=== PATIENT | male | born 1975 | race Two or more races ===

== ENCOUNTER 2020-07-24 13:44 | Outpatient (REF) | payer OTHER, SELFPAY | END 2020-07-24 13:45 | disposition home or self-care (01) | LOC: HO.LAB 13:44 | PROVIDERS: Visit Provider Internal Medicine | DX: Z20.828 Contact with and (suspected) exposure to other viral communicable diseases (principal) | CPT/HCPCS: C9803; U0003 ==

== ENCOUNTER 2022-09-18 10:47 | Outpatient (REF) | payer BC, SELFPAY ==
[2022-09-18 11:20] LABS: MANUAL DIFF FLAG NO
[2022-09-18 11:27] LABS: Basophils Absolute Auto 0.1 X10*3/uL (0.0-0.2); Basophils Percent Auto 0.7 % (0-2); Eosinophils Absolute Auto 0.2 X10*3/uL (0.0-0.4); Eosinophils Percent Auto 2.5 % (0-4); Hematocrit 50.6 % (42.0-52.0); Hemoglobin 16.9 g/dl (14.0-18.0); Imm Gran Abs Auto 0.04 X10*3/uL (0.00-0.03); Imm Gran Pct Auto 0.4 % (0.0-0.4); Lymphocytes Absolute Auto 2.4 X10*3/uL (1.2-4.9); Mean Corpuscular HGB Conc 33.4 g/dl (31.0-36.0); Mean Corpuscular Hemoglobin 30.2 pg (27.0-33.0); Mean Corpuscular Volume 90.5 fL (80.0-98.0); Mean Platelet Volume 10.4 fL (9.4-12.4); Monocytes Absolute Auto 0.9 X10*3/uL (0.1-1.2); Monocytes Percent Auto 9.2 % (2-11); Neutrophils Absolute Auto 5.6 x10*3/uL (2.0-8.3); Neutrophils Percent Auto 61.2 % (45-73); Platelet Count 258 X10*3/uL (160-400); Red Blood Count 5.59 X10*6/uL (4.60-5.80); Red Cell Distribution Width 13.3 % (11.0-16.0); White Blood Count 9.2 X10*3/uL (4.8-10.8)
[2022-09-18 12:19] LABS: Erythrocyte Sedimentation Rate 2 MM/HR (0-15)
[2022-09-18 13:25] LABS: Alanine Aminotransferase 26 U/L (0-40); Albumin Level 4.2 g/dL (3.5-5.0); Alkaline Phosphatase 107 U/L (39-117); Anion Gap 16 (12-20); Aspartate Amino Transferase 23 U/L (5-37); Bilirubin Total 0.5 mg/dL (0.0-1.0); Blood Urea Nitrogen 17 mg/dL (9-16); C Reactive Protein 0.89 mg/dL (< or = 0.50); Calcium 9.9 mg/dL (8.4-10.2); Carbon Dioxide 28 mmol/L (22-29); Chloride 101 mmol/L (96-108); Cholesterol 253 mg/dL; Estimated Glomerular Filt Rate > 60; Glucose Random 65 mg/dL (60-115); Sodium 141 mmol/L (135-145); Total Protein 7.2 g/dL (6.5-8.0)
[2022-09-18 13:32] LABS: Syphilis Screen Nonreactive (Nonreactive)
[2022-09-18 13:33] LABS: Prostate Specific Antigen Scr 0.85 ng/mL (<0.05-4.0)
== END 2022-09-18 10:48 | disposition home or self-care (01) ==
LOC: HO.10HDL 10:47
PROVIDERS: Visit Provider Internal Medicine
DX: Z00.00 Encounter for general adult medical examination without abnormal findings (principal); Z12.5 Encounter for screening for malignant neoplasm of prostate; L50.9 Urticaria, unspecified
CPT/HCPCS: 36415; 80053; 82465; 84153; 85025; 85652; 86140; 86780

== ENCOUNTER 2023-05-23 09:45 | Outpatient (REF) | payer BC, SELFPAY ==
--- NOTE | ~2023-05-23 | XR_ITS ---
EXAMINATION: XR SHOULDER, RIGHT CLINICAL INFORMATION: Right shoulder pain COMPARISON: None available. TECHNIQUE: AP external rotation, Grashey, scapular Y, and axillary views of the right shoulder. FINDINGS: The bones are intact. No fracture. Glenohumeral and acromioclavicular alignment is anatomic with normal glenohumeral joint space. Mild to moderate degenerative change of acromioclavicular joint No abnormal soft tissue calcifications. XR/XR shoulder RT min 2V IMPRESSION: Mild to moderate degenerative change of the acromioclavicular joint.
[2023-05-23 12:17] LABS: Cholesterol 237 mg/dL (<200); HDL Cholesterol 38 mg/dL (>40); LDL Cholesterol Calculated 164 mg/dL (<100); Triglycerides 178 mg/dL (<150)
== END 2023-05-23 09:46 | disposition home or self-care (01) ==
LOC: HO.XRAY 09:45
PROVIDERS: PCP Internal Medicine; Visit Provider Internal Medicine
DX: M25.511 Pain in right shoulder (principal); E78.00 Pure hypercholesterolemia, unspecified
CPT/HCPCS: 36415; 73030; 80061

== ENCOUNTER 2023-09-15 10:51 | Outpatient (REF) | payer BC, SELFPAY ==
[2023-09-15 13:06] LABS: MANUAL DIFF FLAG NO
[2023-09-15 13:09] LABS: Basophils Absolute Auto 0.1 X10*3/uL (0.0-0.2); Basophils Percent Auto 0.8 % (0-2); Eosinophils Absolute Auto 0.1 X10*3/uL (0.0-0.4); Eosinophils Percent Auto 1.2 % (0-4); Hematocrit 47.1 % (42.0-52.0); Hemoglobin 15.8 g/dl (14.0-18.0); Imm Gran Abs Auto 0.01 X10*3/uL (0.00-0.03); Imm Gran Pct Auto 0.1 % (0.0-0.4); Lymphocytes Absolute Auto 2.5 X10*3/uL (1.2-4.9); Lymphocytes Percent Auto 29.2 % (20-40); Mean Corpuscular HGB Conc 33.5 g/dl (31.0-36.0); Mean Corpuscular Hemoglobin 30.4 pg (27.0-33.0); Mean Corpuscular Volume 90.8 fL (80.0-98.0); Mean Platelet Volume 10.8 fL (9.4-12.4); Monocytes Absolute Auto 0.6 X10*3/uL (0.1-1.2); Monocytes Percent Auto 7.2 % (2-11); Neutrophils Absolute Auto 5.2 x10*3/uL (2.0-8.3); Neutrophils Percent Auto 61.5 % (45-73); Platelet Count 231 X10*3/uL (160-400); Red Blood Count 5.19 X10*6/uL (4.60-5.80); Red Cell Distribution Width 13.4 % (11.0-16.0); White Blood Count 8.5 X10*3/uL (4.8-10.8)
[2023-09-15 13:11] LABS: Appearance Urine Clear; Color Urine Yellow; Glucose Urine UA Negative (Negative); Leukocyte Esterase Urine Negative (Negative); Nitrite Urine Negative (Negative); Specific Gravity - Urine 1.015 (1.005-1.025); UMIC TRIGGER UACC YES; Urine Blood Trace (Negative); Urine Ketones Negative (Negative); Urine Protein Negative (Neg-Trace)
[2023-09-15 13:13] LABS: Bacteria Urine None Seen (None Seen); Hyaline Casts Urine 0-2 /LPF (0-2); Squamous Epithelial Cell Urine 0-2 /HPF (0-2); WBC Urine 0-5 /HPF (0-5)
[2023-09-15 13:23] LABS: Alanine Aminotransferase 22 U/L (0-40); Albumin Level 4.1 g/dL (3.5-5.0); Alkaline Phosphatase 91 U/L (39-117); Anion Gap 15 (12-20); Aspartate Amino Transferase 17 U/L (5-37); Bilirubin Total 0.4 mg/dL (0.0-1.0); Blood Urea Nitrogen 16 mg/dL (9-16); Carbon Dioxide 27 mmol/L (22-29); Chloride 103 mmol/L (96-108); Estimated Glomerular Filt Rate > 60; Glucose Random 81 mg/dL (60-115); Potassium 3.9 mmol/L (3.3-5.1); Sodium 141 mmol/L (135-145); Total Protein 7.1 g/dL (6.5-8.0)
[2023-09-15 15:13] LABS: CT PCR NOT DETECTED (Not Detect.); NG PCR NOT DETECTED (Not Detect.)
== END 2023-09-15 10:52 | disposition home or self-care (01) ==
LOC: HO.10HDL 10:51
PROVIDERS: Visit Provider Internal Medicine
DX: R31.9 Hematuria, unspecified (principal); E78.00 Pure hypercholesterolemia, unspecified; Z20.2 Contact with and (suspected) exposure to infections with a predominantly sexual mode of transmission
CPT/HCPCS: 0353U; 80053; 81001; 85025; 87086

== ENCOUNTER 2023-09-26 10:09 | Outpatient (REF) | payer BC, SELFPAY ==
--- NOTE | ~2023-09-26 | US_ITS ---
EXAMINATION: US RETROPERITONEAL COMPLETE (RENAL) CLINICAL INFORMATION: Hematuria. COMPARISON: None available. TECHNIQUE: Real-time imaging of the kidneys and bladder. FINDINGS: RIGHT KIDNEY: 10.7 x 5.0 x 5.4 cm (SAG x AP x TRV). The kidney is normal in size, contour, and echogenicity. Renal cortical thickness is normal. No renal calculi or hydronephrosis. A 3.7 x 3.8 x 3.9 cm simple exophytic cyst extending off the upper pole for which no dedicated imaging follow-up is recommended. LEFT KIDNEY: 10.7 x 5.9 x 4.7 cm (SAG x AP x TRV). The kidney is normal in size, contour, and echogenicity. Renal cortical thickness is normal. No renal calculi or hydronephrosis. 0.8 x 0.9 x 0.6 cm simple upper pole cyst for which no dedicated imaging follow-up is recommended. BLADDER: Well distended. Bilateral ureteral jets are demonstrated. Prevoid bladder volume is 147 mL. Postvoid bladder volume is 2 mL. 1.3 x 0.8 x 1.1 cm anterior bladder wall cyst is seen. Prostate volume 25 mL. US/US retroperitoneal comp IMPRESSION: 1. No renal calculi. 2. 1.3 cm anterior bladder wall cyst. 3. No significant post void residual.
== END 2023-09-26 10:10 | disposition home or self-care (01) ==
LOC: HO.HMGCX 10:09
PROVIDERS: PCP Internal Medicine; Visit Provider Internal Medicine
DX: R31.9 Hematuria, unspecified (principal)
CPT/HCPCS: 76770

== ENCOUNTER 2024-02-13 07:21 | Day surgery (SDC) | payer BC, SELFPAY ==
--- NOTE | 2024-02-12 09:13 | P.CONAN_ITS ---
Documented by User: Jessica Gramajo NP 02/12/24 09:14 HPI - Anesthesia Eval Consult details Narrative: 48yo M for Colonoscopy [facility] Past Medical History Medical History HLD (hyperlipidemia) Surgical History Surgical History H/O: knee surgery Social History Social History Advance Directives: No Advance Directives Information Provided: Yes Meds Allergies Allergy/AdvReac Type Severity Reaction Status Date / Time No Known Allergies Allergy Verified 02/12/24 07:42 Home Medications ?Medication ?Instructions ?Recorded ?Confirmed ?Last Taken ?Type atorvastatin 10 mg tablet 10 mg PO DAILY 02/12/24 02/12/24 Unknown History Assessment and Plan Assessment Anesthesia Assessment: Chart Reviewed Documented by User: Lisy Conner MD 02/13/24 07:48 PMF Past Medical History Medical History HLD (hyperlipidemia) Family History Family history of problems with anesthesia: No Surgical History Surgical History H/O: knee surgery History of Problems with Anesthesia: No Social History Social History Advance Directives: No Advance Directives Information Provided: Yes Meds Allergies Allergy/AdvReac Type Severity Reaction Status Date / Time No Known Allergies Allergy Verified 02/12/24 07:42 Home Medications ?Medication ?Instructions ?Recorded ?Confirmed ?Last Taken ?Type atorvastatin 10 mg tablet 10 mg PO DAILY 02/12/24 02/12/24 Unknown History Exam Airway Mallampati Class: II TM Dist: >3cm Neck ROM: Full Heart: rrr Lungs: cta Assessment and Plan Assessment Anesthesia Assessment: Anesthesia Plan Discussed Final Anesthetic Review Family History of Problems with Anesthesia: No History of Problems with Anesthesia: No NPO: Yes ASA Class: II Final Preanesthetic Review: No Changes in Pt Med Stat, Meds/Allgs Chart Reviewed, Consent Obtained/Reviewed and Anes Risks/Benef Reviewed Patient Risk: Intermediate Procedure Risk: Low Anesthetic Plan Anesthetic Plan: MAC: Disposition: Standard PACU
[2024-02-13 07:47] VITALS: BMI 25.1
[2024-02-13 07:49] VITALS: BP 113/77; PULSE 66; RESP 16; TEMP 36.3; O2SAT 97
[2024-02-13] MEDS: Lactated Ringers 1,000 ML 100 ML IVCONT (08:00)
--- NOTE | 2024-02-13 09:17 | P.BOP_ITS ---
Brief Operative Note Date of Service: 02/13/24 Pre-op diagnosis: Screening Post-op diagnosis: other (Internal hemorrhoids) Procedure: Colonoscopy to the cecum and TI Surgeon: True Mcdonald MD Anesthesia: MAC Was an Department [employer] Natural [employer] Officer used for this Procedure?: No Estimated blood loss (mL): 0 Pathology: none sent Condition: stable Disposition: PACU
[2024-02-13 09:18] VITALS: BP 107/76; PULSE 76; RESP 16; TEMP 36.1; O2SAT 98
--- NOTE | 2024-02-13 09:27 | OP_ITS ---
DATE OF SERVICE: 02/13/2024 SURGEON: True Mcdonald MD INDICATIONS: The patient presents for evaluation of colorectal cancer screening. Full consent has been obtained from him for this, including risks of bleeding and perforation. PREOPERATIVE DIAGNOSIS: Colorectal cancer screening. POSTOPERATIVE DIAGNOSIS: PROCEDURE PERFORMED: Colonoscopy to the cecum and terminal ileum. ESTIMATED BLOOD LOSS: COMPLICATIONS: ANESTHESIA: Monitored anesthesia care. ASSISTANTS: SPECIMENS: POSTOPERATIVE DIAGNOSES: Colorectal cancer screening, internal hemorrhoids. DESCRIPTION OF PROCEDURE: The patient was placed in the left lateral decubitus position. The digital rectal exam revealed no abnormalities. The Olympus video pediatric colonoscope was then entered into the rectum and advanced easily to the cecum. Once in the cecum, I did identify normal-appearing cecal pouch with appendiceal orifice and a normal-appearing ileocecal valve. The terminal ileum was cannulated and appeared normal. Scope was withdrawn back in the colon. The entire cecum and ileocecal valve appeared normal. The scope was then slowly withdrawn assessing all mucosal surfaces carefully. Preparation was excellent. I did not visualize any sign of polyps, colitis, or angiodysplasia. There was an occasional diverticulum noted in the sigmoid colon. In the rectum, scope was retroflexed, visualizing some small internal hemorrhoids, but no other pathology. The rectal mucosa appeared normal. The scope was straightened and withdrawn from the patient. He tolerated the procedure well and was returned to the recovery area in stable condition. IMPRESSION: 1. Occasional sigmoid diverticulosis. 2. Small internal hemorrhoids. PLAN: Given the negative colonoscopy, I would recommend a followup colonoscopy in 10 years for further screening. He will, otherwise, see me on a p.r.n. basis. True Mcdonald MD RMW/CHRISTINAL / [phone]
[2024-02-13 09:33] VITALS: BP 108/74; PULSE 69; RESP 16; O2SAT 95
[2024-02-13 09:48] VITALS: BP 106/75; PULSE 59; RESP 16; TEMP 36.1; O2SAT 96
--- OUTSIDE RECORDS SUMMARY | 2024-02-13 11:29 | XMS_ITS | Patient Health Record ---
Author Organization [facility] Address [address] [place] [address] Care Team Providers Care Special Forces Engineer Sergeant Name Role Phone Justo Fleming MD Primary Care Provider True Carballo Unavailable [phone] ALLERGIES No Known Allergies REASON FOR REFERRAL Referring Provider First Name Justo Referring Provider Last Name Ruchi Referring Provider Speciality Internal M edicine Referred Organization [facility] Referred Provider True Mcdonald Referred Address [address],[place], [place],[address], Referred Provider Specialty Gastroentero logy General Notes Jeanette Philippe 024 01:23:47 PM EST > Call Dr. Fleming's office to request an [facility] [place] referral for visit with Dr. Mcdonald on [phone], Jeanette Philippe 10/23/2023 11:23:22 AM EST > REQUESTED FROM DR FLEMING'S OFFICE Referral Priority Routine MEDICATIONS Medication SIG (Take, Route, Frequency, Duration) Notes Start Date End Date Status Omeprazole 20 MG 1 capsule 30 minutes before morning meal Orally Once a day/ over the counter Not-Taking Atorvastatin Calcium 10 MG TAKE 1 TABLET BY MOUTH EVERY DAY Oral for 90 Active SOCIAL HISTORY Tobacco Use: Social History Observation Description Date Details (start date - stop date) Never Smoker NA - NA Sex Assigned At : Social History Observation Description Sex Assigned At Unknown Tobacco Use/Smoking Question Answer Notes Patient is a nonsmoker Alcohol Screen Question Answer Notes Did you have a drink contain ing alcohol in the past year? Yes How often did you have a dri nk containing alcohol in the past year? Never (0 point) How many drinks did you have on a typical day when you were drinking in the past year? 1 or 2 drinks (0 point) How often did you have 6 or more drinks on one occasion in the past year? Never (0 point) Points 0 Interpretation Negative PROBLEMS Problem Type ICD Code Onset Dates Problem Status W/U Status Risk SNOMED Code Notes Problem Colon cancer screening (Z12.11) Active confirmed Colon cancer screening (200901898) Problem Encounter for other preprocedural examination (Z01.818) Active confirmed Pre-procedure evaluation check ([id number]) VITAL SIGNS Temperature 97.5 degrees Fahrenheit 11/11/2023 Blood pressure diastolic 00 mm Hg 11/11/2023 Height 5 ft 11 in in 11/11/2023 Blood pressure systolic 00 mm Hg 11/11/2023 Weight 184 lbs 11/11/2023 BMI 25.66 kg/m2 11/11/2023 Encounters Encounter Location Date Provider Diagnosis [facility] [place] Out[place] [address], [place] [phone] 02/13/2024 True Mcdonald [facility] [address] [place] [address] 11/11/2023 True Mcdonald Colon cancer screeni ng Z12.11 and Encounter for other preprocedural examination Z01.818 ASSESSMENTS Encounter Date Diagnosis Assessment Notes Treatment Notes Treatment Clinical Notes 11/11/2023 Colon cancer screening (ICD-10 - Z12.11) 11/11/2023 Encounter for other preprocedural examination (ICD-10 - Z01.818) PLAN OF TREATMENT Future Test Test Name Order Date COLONOSCOPY 11/11/2023 Insurance Providers Payer Name Payer Address Payer Phone Subscriber Number Group Number Insured Name Patient Relationship to Insured Coverage Start Date Coverage End Date [facility] [employer] [facility] [address] [place] [address] [phone] [id number] JOVANNA ACEVES Self - patient is the insured MEDICAL (GENERAL) HISTORY Medical History History ICD Code Denies [place],DM,CVA,Lung disease,renal dise ase Hyperlipidemia Surgical History Surgery Date(Month/Year) knees and ankles as child
--- NOTE | 2024-02-13 11:48 | PC.NURSE ---
24hr update documented on paper chart.
== END 2024-02-13 10:25 | disposition home or self-care (01) ==
PROVIDERS: PCP Internal Medicine; Visit Provider Internal Medicine
PROC: 0DJD8ZZ Inspection of Lower Intestinal Tract, Via Natural or Artificial Opening Endoscopic (ICD-10-PCS; CPT 45378; principal; 2024-02-13 08:30)
DX: Z12.11 Encounter for screening for malignant neoplasm of colon (principal); K57.30 Diverticulosis of large intestine without perforation or abscess without bleeding; K64.8 Other hemorrhoids
CPT/HCPCS: 45378; J2704

== ENCOUNTER 2025-04-29 08:18 | Outpatient (AMB) | payer BC, SELFPAY ==
--- OUTSIDE RECORDS SUMMARY | 2024-02-13 04:30 | XMS_ITS ---
Author Organization [facility] Address [address] [place] [address] Care Team Providers Care Certified Peer Specialist Name Role Phone Ruchi (RETIRED) , Justo Primary Care Provide True Taveras [phone] REASON FOR VISIT screening Problems Problem Type SNOMED Code ICD Code Onset Dates Problem Status W/U Status Risk Notes Problem Diverticulosis o f large intestine without perforation or abscess without bleeding (K57.30) Active confirmed Encounters Encounter Location Date Provider Diagnosis [facility] [address] [place] [phone] 02/13/2024 True Mcdonald Encounter for scre ening colonoscopy Z12.11 ; Diverticulosis of large intestine without perforation or abscess without bleeding K57.30 and Internal hemorrhoids K64.8 Assessments Encounter Date Diagnosis (ICD Code) Assessment Notes Treatment Notes Treatment Clinical Notes Section Notes 02/13/2024 Encounter for screening colonoscopy (ICD-10 - Z12.11) 02/13/2024 Diverticulosis of large intestine without perforation or abscess without bleeding (ICD-10 - K57.30) 02/13/2024 Internal hemorrhoids (ICD-10 - K64.8) Plan Of Treatment No Information Progress Notes * JENNI ACEVESISDOB:1975 ([age] yo M)Acc No.[id number]:02/13/2024 COLON WITH MAC Patient: JOVANNA OLIVERA Provider: Alex Mcdonald MD :1975 A ge:48 Y S ex:Male Date:02/13/2024 Address:[address] [id number] Pcp:Justo Hopper (RETIRED )MD Subjective: * Chief Complaints: * 1 . Screening. * Medical History: Objective: * Vitals: Assessment: * Assessment: 1. E ncounter for screening colonoscopy - Z12.11 (Primary) 2 . D iverticulosis of large intestine without perforation or abscess without bleeding - K57.30 3 .?Internal hemorrhoids - K64.8 Plan: * Treatment: * Procedure Codes: 4 5378 DIAGNOSTIC COLONOSCOPY * * The named appointment provid er may or may not be the originator of this progress note, and it is not deemed complete until electronically signed by the appointment provider. Sign off status: Pending * Provider: Aelx Mcdonald MD Date: 0 02/13/2024 Generated for Pina mae/Kenyatta/Jo-Annitting on: 0 04/29/2025 08:27 AM EDT
--- NOTE | 2025-04-29 08:20 | A.OFFPC_ITS ---
Vital Signs 04/29/25 08:25 Height 5 ft 11 in Weight 81.647 kg BMI 25.1 BP 116/72 Blood Pressure Location Lt brachial Position Sitting Respiration 16 Pulse 56 Pulse Source Pulse Oximeter Temp 97.5 F Temp Source Temporal Artery Scan Pulse Oximetry (%) 98 Oxygen Delivery Method Room Air Intake Visit Reasons: Annual Veterinary Technology Instructor Required: No Accompanied by: Self / Same As Patient Allergies No Known Allergies Allergy (Verified 04/29/25 08:21) Medication List - Last Reconciled 04/29/25 by GLORIA Sanabria multivitamin 1 tab PO DAILY omeprazole 20 mg PO DAILY PRN trazodone 50 mg PO BEDTIME PRN Tobacco use date assessed: 04/29/25 HPI HPI Comments History of Present Illness Details 50-year-old male with history of hyperli pidemia, GERD presents to the office today to establish care, management of chronic conditions, and for annual physical exam. Currently lives with and 1 child (18) and 3 adult children. 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 Trying to follow healthy diet. Eats carbs earlier in afternoon, does eat a lot of rice. Walks for exercise. Limited alcohol. No cigarettes. No drug. Hyperlipidemia-last LDL 167. No longer taking statin, reports was advised he did not need to by prior pcp GERD-controlled with omeprazole History of ?CHD- does not recall what it was but he was following with a doctor as a child. Mother and sister both had pacemakers placed early. No hx syncope, lightheadedness, sob, chest pain Reports sobrehueaso , appears to translate to osteocondroma and describes bony overgrowth. Has required surgery in b/l knees and R ankle. Has abn on L arm as well. Overall not bothersome. [place]geries done while living in [place]. Concerns: Trouble falling asleep- wakes nightly around 1am, takes about 1 hour. Feels rested upon week. Filling in tooth last Friday. Inside of front lower teeth feels a bump ongoing since Friday. No fevers or drainage. Health maintenance: Last colonoscopy 02/2024, 10 year follow-up advised. Dr. Mcdonald Due for screening PSA Last eye exam Last dental exam- 1 week ago Reviewed past medical, surgical, social, family history. ROS: General: No fevers, malaise, unintentional weight loss HEENT: No blurred vision, diplopia. No sore throat, nasal congestion, rhinorrhea, sinus pain, ear pain. No hearing loss. see hpi Neck - no adenopathy Cardiovascular: No chest pain, palpitations, or leg edema Respiratory: No shortness of breath, wheezing, cough GI: No dysphagia, odynophagia, globus sensation. No abdominal pain, nausea, vomiting, diarrhea, constipation, melena, hematochezia : No dysuria, hematuria, increased urinary frequency, decreased urinary output. No testicular swelling or pain. No penile discharge MSK: No myalgia, back pain, arthralgias Neuro: No headaches, weakness, paresthesias Psych: no depression/anxiery. No AH/VH. No SI/HI. see hpi Skin: No rashes or lesions EXAM: Constitutional - Awake and Alert, No apparent distress Eyes - PERRLA, EOMI. Anicteric Mouth - fluctuance with purulent drainage behind lower front two teeth Ears - external ears normal, canals clear, TMs intact and pearly finnegan with good cone of light Nose- septum midline, nares clear, no sinus tenderness Mouth/throat- mucosa moist, tongue and uvula midline, no erythema/edema or tonsillar adenopathy. Neck-trachea midline, thyroid symmetric without palpable nodules, no adenopathy Cardiovascular - S1S2, RRR, No edema Respiratory - Normal lung expansion, Normal respiratory effort, No respiratory distress, CTA bilaterally Gastrointestinal - NT / ND; +BS; No rebound or guarding - No CVA tenderness Extremities - no calf tenderness bilaterally, no swelling Musculoskeletal - Normal inspection, normal ROM Skin - Warm/Dry, no concerning lesions Neurological - Alert & oriented x3, CN II-XII in tact, 5/5 strength BUE and BLE, 2+ patellar reflexes, sensation intact Psychological - Appropriate affect PFSH Medical History (Updated 04/29/25 @ 09:07 by GLORIA Sanabria) Pterygium Osteochondroma Congenital heart defect GERD (gastroesophageal reflux disease) HLD (hyperlipidemia) Surgical History (Updated 04/29/25 @ 09:07 by GLORIA Sanabria) History of colonoscopy (~02/13/24) H/O: knee surgery Family History (Updated 04/29/25 @ 08:47 by GLORIA Sanabria) Mother Congenital heart defect Type 2 diabetes mellitus Sister Congenital heart defect Father Type 2 diabetes mellitus Social History Patient Tobacco Use Status: Never used Tobacco e-Cigarette/Vaping Use: Never Used Questionnaire AUDIT C Alcohol Use Questionnaire (AUDIT-C) 1. How often do you have a drink containing alcohol?: Monthly or less 2. How many drinks containing alcohol do you have on a typical day when you are drinking?: 1 or 2 Total Score: 1 Physical exam (Primary Care) Vital Signs: Last Vital Signs Temp 97.5 F 04/29/25 08:25 Pulse 56 04/29/25 08:25 Resp 16 04/29/25 08:25 BP 116/72 04/29/25 08:25 Pulse Ox 98 04/29/25 08:25 Oxygen Delivery Method Room Air 04/29/25 08:25 BMI result Body Mass Index 25.1 Tobacco/Smoking Status: Tobacco use Status Tobacco use date assessed 04/29/25 04/29/25 08:21 Patient Tobacco Use Status Never used Tobacco 04/29/25 08:21 e-Cigarette/Vaping Use Never Used 04/29/25 08:21 Coding Level of Care Code Est Pt Level 4 (38274) Est Pt Prev Care 40-64y(93339) Diagnoses Routine medical exam Z00.00 HLD (hyperlipidemia) E78.5 Dental abscess K04.7 Insomnia G47.00 Low libido R68.82 Assessment & Plan Assessment & Plan (1) Routine medical exam: Code(s): Z00.00 - Encounter for general adult medical examination without abnormal findings Plan: Plan as below (2) HLD (hyperlipidemia): Code(s): E78.5 - Hyperlipidemia, unspecified Category: Medical Plan: Lipid panel ordered. ASCVD risk score to be calculated pending results of study. For now, continue diet low in saturated fats and highly processed foods. Recommend regular exercise including weights (3) Dental abscess: Code(s): K04.7 - Periapical abscess without sinus Category: Medical Plan: Recently dental screening Friday, now with abscess behind front 2 teeth. Augmentin prescribed. Advised to present soon to the dentist for further evaluation (4) Insomnia: Code(s): G47.00 - Insomnia, unspecified Category: Medical Plan: Trial trazodone. We will consider Ambien pending results (5) Low libido: Code(s): R68.82 - Decreased libido Category: Medical Plan: Testosterone level ordered Plan Routine screening labs as ordered below Continue with screening colonoscopies and PSA Continue following for annual skin exams and use sun protection Annual eye exams Wear seat belt in car Recommend regular exercise and healthy diet Follow up in 1 year for annual exam Orders: Orders Basic Metabolic Panel Today Z00.00 - Encounter for general adult medical examination without abnormal findings Liver Panel Today Z00.00 - Encounter for general adult medical examination without abnormal findings Testosterone, Free/Total Today G47.00 - Insomnia, unspecified, R68.82 - Decreased libido Complete Blood Count Auto Diff Today Z00.00 - Encounter for general adult medical examination without abnormal findings Hemoglobin A1c Today Z00.00 - Encounter for general adult medical examination without abnormal findings Lipid Panel Today Z00.00 - Encounter for general adult medical examination without abnormal findings Prostate Specific Antigen Today Z00.00 - Encounter for general adult medical examination without abnormal findings Medications: New trazodone 50 mg PO BEDTIME PRN 90 tabs 0RF sleep amoxicillin-pot clavulanate 875-125 mg 1 tab PO BID 10 tabs 0RF
[2025-04-29 08:25] VITALS: BP 116/72; PULSE 56; RESP 16; TEMP 36.4; O2SAT 98; BMI 25.1
--- OUTSIDE RECORDS SUMMARY | 2025-04-29 08:27 | XMS_ITS ---
Author Name [facility] Organization Unknown Encounters Encounter Type Encounter Reason Primary Diagnosis Location Date Ambulatory [facility] 08/17/2022 Care Team Organization Name Specialty Phone Email Start Date End [facility]
--- OUTSIDE RECORDS SUMMARY | 2025-04-29 08:28 | XMS_ITS | Clinical Summary ---
Author Organization [facility] Address [address] [place] [phone] Phone Care Team Providers Care Healthcare Economics Consultant Name Role Phone Unknown, Unknown Primary Care Provider Ginger garcia Allergies No known active allergies Medications cyclobenzaprine (FLEXERIL) 10 MG tablet Take 1 tablet (10 mg total) by mouth 3 (three) times a day as needed. 12 tablet 06/29/2018 Active ibuprofen (ADVIL,MOTRIN) 600 MG tablet Take 1 tablet (600 mg total) by mouth every 8 (eight) hours as needed for pain (specific location in comments) or fever. 15 tablet 06/29/2018 Active Social History Tobacco Use Types Packs/Day Years Used Date Smoking Tobacco: Never Alcohol Use Standard Drinks/Week Comments No 0 (1 standard drink = 0.6 oz pur e alcohol) Education Answer Date Recorded Are you interested in more education? Not on liz e 01/03/2023 Are you concerned about learning? Not on file 01/03/2023 No 01/03/2023 No 01/03/2023 Digital Access Answer Date Recorded No 02/04/2023 No 02/04/2023 No 02/04/2023 Reliable internet access at home? Not on file 02/04/2023 Device with a working camera? Not on file Sex and Gender Information Value Date Recorded Sex Assigned at Not on file Legal Sex Male 10:13 AM EDT Gender Identity Not on file Sexual Orientation Not on file Last Filed Vital Signs Vital Sign Reading Time Taken Comments Blood Pressure 118/80 06/29/2018 2:11 PM EDT Pulse 70 06/29/2018 2:11 PM EDT Temperature 36.7 C (98 F) 06/29/2018 2:11 PM EDT Respiratory Rate 18 06/29/2018 2:11 PM EDT Oxygen Saturation 100% 06/29/2018 2:11 PM EDT Inhaled Oxygen Concentration - - Weight 81.2 kg (179 lb) 06/29/2018 11:53 AM EDT Height 180.3 cm (5' 11 ) 06/29/2018 11:53 AM EDT Body Mass Index 24.97 06/29/2018 11:53 AM EDT Plan of Treatment Not on file Medical Devices Not on file Insurance Care Teams Healthcare Economics Consultant Relationship Specialty Start Date End Date Unknown, Unknown, PCP - General 06/29/18 Additional Source Comments The information contained in this document represents components of the legal health record. It is not the complete legal health record.[facility]
== END 2025-04-29 10:00 | disposition home or self-care (01) ==
LOC: HO.HMCHD 08:18
PROVIDERS: PCP Physician Assistant; Visit Provider Physician Assistant
DX: Z00.00 Encounter for general adult medical examination without abnormal findings (principal); E78.5 Hyperlipidemia, unspecified; K04.7 Periapical abscess without sinus; G47.00 Insomnia, unspecified; R68.82 Decreased libido

== ENCOUNTER 2025-04-29 08:59 | Outpatient (REF) | payer BC, SELFPAY ==
[2025-04-29 10:14] LABS: MANUAL DIFF FLAG NO
[2025-04-29 10:22] LABS: Hematocrit 47.5 % (42.0-52.0); Hemoglobin 16.0 g/dl (14.0-18.0); Imm Gran Abs Auto 0.01 X10*3/uL (0.00-0.03); Imm Gran Pct Auto 0.2 % (0.0-0.4); Lymphocytes Absolute Auto 2.3 X10*3/uL (1.2-4.9); Mean Corpuscular HGB Conc 33.7 g/dl (31.0-36.0); Mean Corpuscular Hemoglobin 30.1 pg (27.0-33.0); Mean Corpuscular Volume 89.3 fL (80.0-98.0); NRBC Abs Auto 0.000 X10*3/uL (0.0-0.012); NRBC Pct Auto 0.0 /100WBC (0.0-0.2); Platelet Count 231 X10*3/uL (160-400); Red Blood Count 5.32 X10*6/uL (4.60-5.80); White Blood Count 6.6 X10*3/uL (4.8-10.8)
[2025-04-29 10:35] LABS: Hemoglobin A1C 150.2314 umol/L
[2025-04-29 11:17] LABS: Prostate Specific Antigen 0.91 ng/mL (<0.05-4.0)
[2025-04-29 11:22] LABS: Alanine Aminotransferase 20 U/L (0-40); Albumin Level 4.3 g/dL (3.5-5.0); Alkaline Phosphatase 99 U/L (39-117); Anion Gap 12 (12-20); Aspartate Amino Transferase 18 U/L (5-37); Blood Urea Nitrogen 19 mg/dL (9-16); Calcium 9.1 mg/dL (8.4-10.2); Carbon Dioxide 25 mmol/L (22-29); Chloride 108 mmol/L (96-108); Cholesterol 226 mg/dL (<200); Estimated Glomerular Filt Rate > 60; HDL Cholesterol 35 mg/dL (>40); Potassium 4.2 mmol/L (3.3-5.1); Sodium 141 mmol/L (135-145); Total Protein 7.1 g/dL (6.5-8.0); Triglycerides 122 mg/dL (<150)
== END 2025-04-29 09:00 | disposition home or self-care (01) ==
LOC: HO.10HDL 08:59
PROVIDERS: Visit Provider Physician Assistant
DX: Z00.00 Encounter for general adult medical examination without abnormal findings (principal); E78.5 Hyperlipidemia, unspecified; K04.7 Periapical abscess without sinus; G47.00 Insomnia, unspecified; R68.82 Decreased libido
CPT/HCPCS: 36415; 80048; 80061; 80076; 83036; 84153; 85025